=== PATIENT | female | born 1970 | race Caucasian/White ===

== ENCOUNTER 2018-05-22 19:17 | Emergency (ER) | payer OTHER, MEDICAID, SELFPAY ==
[2018-05-22 19:43] VITALS: BP 148/91; PULSE 81; RESP 20; TEMP 36.4; O2SAT 97; BMI 26.9
--- NOTE | 2018-05-22 20:08 | DI.RAD.S_ITS ---
PROCEDURE: XR CHEST 2V INDICATIONS: productive cough, wheezing TECHNIQUE: 2 views of the chest were acquired. COMPARISON: None. FINDINGS: Surgical changes and devices: None. Lungs and pleura: No pleural effusions or pneumothorax. Lungs are clear. Mediastinum: Mediastinal contours are normal. Heart size is normal. Bones and chest wall: No suspicious bony abnormalities. Soft tissues appear unremarkable. IMPRESSION: No acute process. Dictated by: Zion Flores M.D. on 05/22/2018 at 21:06 Approved by: Zion Flores M.D. on 05/22/2018 at 21:07
[2018-05-22 20:29] VITALS: PULSE 71; RESP 18; O2SAT 99
[2018-05-22] MEDS: ALBUTEROL/IPRATROPIUM 3 ML AMPUL INH (20:29)
--- NOTE | 2018-05-22 20:31 | ED.URI ---
HPI - URI/Sore Throat <SHUKRI Morales - Last Filed: 05/22/18 21:49> General Chief Complaint: Upper Respiratory Symptoms Stated Complaint: cough,runny nose,sob chest pain for about a week Time Seen by Provider: 05/22/18 20:00 Source: patient Mode of arrival: ambulatory Limitations: no limitations History of Present Illness HPI Narrative: Patient presents with chief complaint of productive cough, shortness of breath, congestion for 1 week. She denies any objective history of asthma, COPD, pneumonia with states she has used an inhaler in the past. She developed abdominal pain in the center of her abdomen yesterday. She states her abdominal pain is worse with coughing or pressure. She denies any chest pain. She denies any objective fevers but complains of muscle aches and chills. She denies any urinary symptoms including urgency, frequency or dysuria. She denies any nausea vomiting or diarrhea. She complains of sore throat, worse when coughing. Related Data Home Medications Medication Instructions Recorded Confirmed citalopram 1 tab PO DAILY 05/22/18 05/22/18 fluticasone 1 spray INTRANASAL DAILY 05/22/18 05/22/18 hydrochlorothiazide 1 tab PO DAILY 05/22/18 05/22/18 prazosin 1 - 2 cap PO QPM 05/22/18 05/22/18 Allergies Allergy/AdvReac Type Severity Reaction Status Date / Time No Known Drug Allergies Allergy Verified 05/22/18 19:47 Review of Systems [facility] - Last Filed: 05/22/18 21:49> Review of Systems GENERAL: See HPI HEENT: See HPI RESPIRATORY: See HPI. CARDIOVASCULAR: Denies chest pain, palpitations, orthopnea, edema, GASTROINTESTINAL: Denies nausea, vomiting, abdominal pain, diarrhea, constipation, melena. : Denies dysuria, frequency, incontinence, hematuria, urinary retention. MUSCULOSKELETAL: denies weakness, joint pain, or bony pain SKIN: Denies rash, skin lesions, or other NEUROLOGIC: Denies weakness, headache, numbness, change in speech, confusion, seizures, incoordination. PSYCHIATRIC: No concerning psychosocial issues. 12 point review of systems is negative except for those stated above Exam <SHKURI Morales - Last Filed: 05/22/18 21:49> Narrative Exam Narrative: GENERAL: This is a well-nourished, well-developed patient, wearing mask HEAD: Atraumatic. Normocephalic. No temporal or scalp tenderness. EYES: Pupils equal round and reactive. Extraocular motions intact. No scleral icterus. No injection or drainage. ENT: Nose without bleeding, purulent drainage or septal hematoma. Throat without erythema, tonsillar hypertrophy or exudate. Uvula midline. Airway patent. TMs pearly bird bilaterally. NECK: Trachea midline. No JVD or lymphadenopathy. Supple, nontender, no meningeal signs. CARDIOVASCULAR: Regular rate and rhythm without murmurs, gallops, or rubs. RESPIRATORY: Productive cough during exam. Scattered crackles right lower lobe. Diffuse expiratory wheezes throughout. No increased respiratory effort no accessory muscle use. GASTROINTESTINAL: Abdomen soft, nondistended. No hepato-splenomegaly, or palpable masses. No guarding. Diffuse tenderness to palpation. No pulsatile mass. Active bowel sounds all 4 quadrants. EXTREMITIES: No clubbing, cyanosis, or edema. No joint tenderness, effusion, or edema noted. BACK: Nontender without deformity or crepitance. No flank tenderness. NEURO: AOx3. SKIN: No rash or erythema. Initial Vital Signs Initial Vital Signs: Vital Signs Temperature 97.6 F 05/22/18 19:43 Pulse Rate 81 05/22/18 19:43 Respiratory Rate 20 05/22/18 19:43 Blood Pressure 148/91 H 05/22/18 19:43 Pulse Oximetry 97 05/22/18 19:43 <Fifi Farias DO - Last Filed: 05/24/18 01:49> Initial Vital Signs Initial Vital Signs: Vital Signs Temperature 97.6 F 05/22/18 19:43 Pulse Rate 81 05/22/18 19:43 Respiratory Rate 20 05/22/18 19:43 Blood Pressure 148/91 H 05/22/18 19:43 Pulse Oximetry 97 05/22/18 19:43 Course <ANAI Morales - Last Filed: 05/22/18 21:49> Orders Ordered: Discontinued Medications Albuterol (Ventolin Hfa Prepack) 1 box MISC SEEINSTR ONE Stop: 05/22/18 21:40 Last Admin: 05/22/18 21:44 Dose: 1 box Albuterol/Ipratropium (Duoneb) 3 ml INH NOW ONE Stop: 05/22/18 20:28 Last Admin: 05/22/18 20:29 Dose: 3 ml Potassium Chloride (Klor-Con M20) 40 meq PO NOW ONE Stop: 05/22/18 21:40 Last Admin: 05/22/18 21:46 Dose: 40 meq Reevaluation(s) Reevaluation #1: Discussed negative chest x-ray negative flu. Patient is on her stretcher, no apparent shortness of breath watching her cell phone. Time: 21:00 Reevaluation #2: Discussed normal lab findings. Encouraged ffis-osc-gvfqphg comfort medications as needed and able. Discussed prescription for a Ventolin as well as follow up with primary care provider for Time: 21:40 Vital Signs - 8 hr 05/22/18 19:43 05/22/18 20:29 Temperature 97.6 F Pulse Rate 81 71 Respiratory Rate 20 18 Blood Pressure 148/91 H Pulse Oximetry 97 99 <Fifi Farias DO - Last Filed: 05/24/18 01:49> Orders Ordered: Discontinued Medications Albuterol (Ventolin Hfa Prepack) 1 box MISC SEEINSTR ONE Stop: 05/22/18 21:40 Last Admin: 05/22/18 21:44 Dose: 1 box Albuterol/Ipratropium (Duoneb) 3 ml INH NOW ONE Stop: 05/22/18 20:28 Last Admin: 05/22/18 20:29 Dose: 3 ml Potassium Chloride (Klor-Con M20) 40 meq PO NOW ONE Stop: 05/22/18 21:40 Last Admin: 05/22/18 21:46 Dose: 40 meq Vital Signs - 8 hr 05/22/18 19:43 05/22/18 20:29 Temperature 97.6 F Pulse Rate 81 71 Respiratory Rate 20 18 Blood Pressure 148/91 H Pulse Oximetry 97 99 MDM - URI/Sore Throat <ANAI Morales - Last Filed: 05/22/18 21:49> Lab Data Attestation: I reviewed the patient's lab results. Result diagrams: 05/22/18 20:55 05/22/18 20:55 Lab Results 10/14/18 10/14/18 10/14/18 Range/Units 20:15 20:55 20:55 WBC 9.7 (4.5-11.0) X10^3/uL RBC 4.58 (4.0-5.2) X10^6/uL Hgb 12.7 (12.0-16.0) g/dL Hct 38.7 (36-46) % MCV 84.4 (80-100) fL MCH 27.6 (26-34) PG MCHC 32.8 (30-36) % RDW 14.1 (11.6-14.8) % Plt Count 173 (150-400) X10^3/uL Neut % (Auto) 51.7 (50-75) % Lymph % (Auto) 39.6 (25-40) % [place] % (Auto) 7.0 (3-14) % Eos % (Auto) 1.4 L (2-4) % Baso % (Auto) 0.3 (0-2) % Neut # (Auto) 5000 (3882-3539) /uL Sodium 142 (137-145) mmol/L Potassium 3.3 L (3.4-5.1) mmol/L Chloride 99 (98-107) mmol/L Carbon Dioxide 32 (22-32) mmol/L BUN 8 (7-17) mg/dL Creatinine 0.60 (0.52-1.04) mg/dL Estimated GFR > 60.0 (>60) mL/min BUN/Creatinine Ratio 13.3 (6-22) Glucose 115 H (70-100) mg/dL Calcium 9.0 (8.4-10.2) mg/dL Total Bilirubin 0.2 (0.2-1.3) mg/dL AST 32 (14-36) IU/L ALT 40 (9-52) IU/L Alkaline Phosphatase 63 (38-126) U/L Total Protein 7.5 (6.3-8.2) g/dL Albumin 4.4 (3.5-5.0) g/dL Globulin 3.1 (1.7-4.1) g/dL Albumin/Globulin Ratio 1.4 (1.0-2.8) Amylase 87 (30-110) U/L Lipase 298 (23-300) U/L Influenza A & B (PCR) Negative (Negative) 40 mEq PCO given. Imaging Data Chest x-ray: Radiologist's impression: [address] [address] XRay Report Signed Patient: Angela Arndt EMR#: [id number] : 1970Acct:[id number] Age/Sex: 47 / FDate of Service: 05/22/18 Loc: ED Accession Number: [id number] Procedure: XR chest 2V Ordering Provider: Azzia Servin PROCEDURE: XR CHEST 2V INDICATIONS: productive cough, wheezing TECHNIQUE: 2 views of the chest were acquired. COMPARISON: None. FINDINGS: Surgical changes and devices: None. Lungs and pleura: No pleural effusions or pneumothorax. Lungs are clear. Mediastinum: Mediastinal contours are normal. Heart size is normal. Bones and chest wall: No suspicious bony abnormalities. Soft tissues appear unremarkable. IMPRESSION: No acute process. Dictated by: Zion Flores M.D. on 05/22/2018 at 21:06 Approved by: Zion Flores M.D. on 05/22/2018 at 21:07 [facility] Narrative Medical decision making narrative: Patient presents with chief complaint of productive cough for 5 days. She had a negative chest x-ray, negative lab work, but slight wheezes on exam. She is given a nebulizer emergency department. I discussed at length follow up with primary care provider if no improvement in the next week. Since patient has not taken any ilbo-auu-evtatza cough remedies, I suggested yqtf-rjs-awltvbn guaifenesin, honey/lemon as able, Mucinex and another comfort medications. She did complain of abdominal pain, but has a benign abdominal exam and normal lab work. She states her breathing was much improved after the nebulizer treatment the emergency department, so I did give her a prepack of Ventolin for home use. I discussed return precautions of shortness of breath, chest pain or acute concerns. Patient no questions or concerns upon discharge. <Fifi Farias, - Last Filed: 05/24/18 01:49> Lab Data Lab Results 05/22/18 05/22/18 05/22/18 Range/Units 20:15 20:55 20:55 WBC 9.7 (4.5-11.0) X10^3/uL RBC 4.58 (4.0-5.2) X10^6/uL Hgb 12.7 (12.0-16.0) g/dL Hct 38.7 (36-46) % MCV 84.4 (80-100) fL MCH 27.6 (26-34) PG MCHC 32.8 (30-36) % RDW 14.1 (11.6-14.8) % Plt Count 173 (150-400) X10^3/uL Neut % (Auto) 51.7 (50-75) % Lymph % (Auto) 39.6 (25-40) % [place] % (Auto) 7.0 (3-14) % Eos % (Auto) 1.4 L (2-4) % Baso % (Auto) 0.3 (0-2) % Neut # (Auto) 5000 (3165-9479) /uL Sodium 142 (137-145) mmol/L Potassium 3.3 L (3.4-5.1) mmol/L Chloride 99 (98-107) mmol/L Carbon Dioxide 32 (22-32) mmol/L BUN 8 (7-17) mg/dL Creatinine 0.60 (0.52-1.04) mg/dL Estimated GFR > 60.0 (>60) mL/min BUN/Creatinine Ratio 13.3 (6-22) Glucose 115 H (70-100) mg/dL Calcium 9.0 (8.4-10.2) mg/dL Total Bilirubin 0.2 (0.2-1.3) mg/dL AST 32 (14-36) IU/L ALT 40 (9-52) IU/L Alkaline Phosphatase 63 (38-126) U/L Total Protein 7.5 (6.3-8.2) g/dL Albumin 4.4 (3.5-5.0) g/dL Globulin 3.1 (1.7-4.1) g/dL Albumin/Globulin Ratio 1.4 (1.0-2.8) Amylase 87 (30-110) U/L Lipase 298 (23-300) U/L Influenza A & B (PCR) Negative (Negative) Discharge Plan Departure Patient Disposition: Home Clinical Impression: Upper respiratory infection, Bilateral wheezing, Abdominal pain, Cough Discharge Date/Time: 05/22/18 22:07 Interventions: ED Discharge Assessment Last Done: 10/14/18 22:06 Instructions: Cough (Alternative Therapy), DI for Cough -- Adult, DI for Abdominal Pain-Adult, DI for Shortness of Breath Activity Restrictions/Additional Instructions: Your x-ray came back negative for pneumonia. You flu test came back negative. Your lab work came back normal. Given that your breathing improved upon the nebulizer treatment I have given you an inhaler to take home. Please use honey/lemon, fbfb-hfd-xmdvbvo medications such as guaifenesin her Mucinex for your cough. Follow up with primary care for worsening or no improvement or come back to the emergency department for any acute concerns. Prescriptions: No Action prazosin 1 mg capsule 1 - 2 cap PO QPM RF: 0 citalopram 20 mg tablet 1 tab PO DAILY RF: 0 hydrochlorothiazide 12.5 mg capsule 1 tab PO DAILY RF: 0 fluticasone 50 mcg/actuation spray,suspension 1 spray Intranasal DAILY RF: 0 <Fifi Farias DO - Last Filed: 05/24/18 01:49> Cosign ED Attending Antony Attestation: I was immediately available in the department for consultation. Documentation has been reviewed. I agree with assessment and plan.
--- NOTE | 2018-05-22 20:36 | ED_ITS ---
HPI - URI/Sore Throat <SHUKRI Morales - Last Filed: 05/22/18 21:49> General Chief Complaint: Upper Respiratory Symptoms Stated Complaint: cough,runny nose,sob chest pain for about a week Time Seen by Provider: 05/22/18 20:00 Source: patient Mode of arrival: ambulatory Limitations: no limitations History of Present Illness HPI Narrative: Patient presents with chief complaint of productive cough, shortness of breath, congestion for 1 week. She denies any objective history of asthma, COPD, pneumonia with states she has used an inhaler in the past. She developed abdominal pain in the center of her abdomen yesterday. She states her abdominal pain is worse with coughing or pressure. She denies any chest pain. She denies any objective fevers but complains of muscle aches and chills. She denies any urinary symptoms including urgency, frequency or dysuria. She denies any nausea vomiting or diarrhea. She complains of sore throat, worse when coughing. Related Data Home Medications Medication Instructions Recorded Confirmed citalopram 1 tab PO DAILY 05/22/18 05/22/18 fluticasone 1 spray INTRANASAL DAILY 05/22/18 05/22/18 hydrochlorothiazide 1 tab PO DAILY 05/22/18 05/22/18 prazosin 1 - 2 cap PO QPM 05/22/18 05/22/18 Allergies Allergy/AdvReac Type Severity Reaction Status Date / Time No Known Drug Allergies Allergy Verified 05/22/18 19:47 Review of Systems <[facility] - Last Filed: 05/22/18 21:49> Review of Systems GENERAL: See HPI HEENT: See HPI RESPIRATORY: See HPI. CARDIOVASCULAR: Denies chest pain, palpitations, orthopnea, edema, GASTROINTESTINAL: Denies nausea, vomiting, abdominal pain, diarrhea, constipation, melena. : Denies dysuria, frequency, incontinence, hematuria, urinary retention. MUSCULOSKELETAL: denies weakness, joint pain, or bony pain SKIN: Denies rash, skin lesions, or other NEUROLOGIC: Denies weakness, headache, numbness, change in speech, confusion, seizures, incoordination. PSYCHIATRIC: No concerning psychosocial issues. 12 point review of systems is negative except for those stated above Exam <HSUKRI Morales - Last Filed: 05/22/18 21:49> Narrative Exam Narrative: GENERAL: This is a well-nourished, well-developed patient, wearing mask HEAD: Atraumatic. Normocephalic. No temporal or scalp tenderness. EYES: Pupils equal round and reactive. Extraocular motions intact. No scleral icterus. No injection or drainage. ENT: Nose without bleeding, purulent drainage or septal hematoma. Throat without erythema, tonsillar hypertrophy or exudate. Uvula midline. Airway patent. TMs pearly bird bilaterally. NECK: Trachea midline. No JVD or lymphadenopathy. Supple, nontender, no meningeal signs. CARDIOVASCULAR: Regular rate and rhythm without murmurs, gallops, or rubs. RESPIRATORY: Productive cough during exam. Scattered crackles right lower lobe. Diffuse expiratory wheezes throughout. No increased respiratory effort no accessory muscle use. GASTROINTESTINAL: Abdomen soft, nondistended. No hepato-splenomegaly, or palpable masses. No guarding. Diffuse tenderness to palpation. No pulsatile mass. Active bowel sounds all 4 quadrants. EXTREMITIES: No clubbing, cyanosis, or edema. No joint tenderness, effusion, or edema noted. BACK: Nontender without deformity or crepitance. No flank tenderness. NEURO: AOx3. SKIN: No rash or erythema. Initial Vital Signs Initial Vital Signs: Vital Signs Temperature 97.6 F 05/22/18 19:43 Pulse Rate 81 05/22/18 19:43 Respiratory Rate 20 05/22/18 19:43 Blood Pressure 148/91 H 05/22/18 19:43 Pulse Oximetry 97 05/22/18 19:43 <Fifi Farias DO - Last Filed: 05/24/18 01:49> Initial Vital Signs Initial Vital Signs: Vital Signs Temperature 97.6 F 05/22/18 19:43 Pulse Rate 81 05/22/18 19:43 Respiratory Rate 20 05/22/18 19:43 Blood Pressure 148/91 H 05/22/18 19:43 Pulse Oximetry 97 05/22/18 19:43 Course <ANAI Morales - Last Filed: 05/22/18 21:49> Orders Ordered: Discontinued Medications Albuterol (Ventolin Hfa Prepack) 1 box MISC SEEINSTR ONE Stop: 05/22/18 21:40 Last Admin: 05/22/18 21:44 Dose: 1 box Albuterol/Ipratropium (Duoneb) 3 ml INH NOW ONE Stop: 05/22/18 20:28 Last Admin: 05/22/18 20:29 Dose: 3 ml Potassium Chloride (Klor-Con M20) 40 meq PO NOW ONE Stop: 05/22/18 21:40 Last Admin: 05/22/18 21:46 Dose: 40 meq Reevaluation(s) Reevaluation #1: Discussed negative chest x-ray negative flu. Patient is on her stretcher, no apparent shortness of breath watching her cell phone. Time: 21:00 Reevaluation #2: Discussed normal lab findings. Encouraged pral-imh-pvkqcst comfort medications as needed and able. Discussed prescription for a Ventolin as well as follow up with primary care provider for Time: 21:40 Vital Signs - 8 hr 05/22/18 19:43 05/22/18 20:29 Temperature 97.6 F Pulse Rate 81 71 Respiratory Rate 20 18 Blood Pressure 148/91 H Pulse Oximetry 97 99 <Fifi Farias DO - Last Filed: 05/24/18 01:49> Orders Ordered: Discontinued Medications Albuterol (Ventolin Hfa Prepack) 1 box MISC SEEINSTR ONE Stop: 05/22/18 21:40 Last Admin: 05/22/18 21:44 Dose: 1 box Albuterol/Ipratropium (Duoneb) 3 ml INH NOW ONE Stop: 05/22/18 20:28 Last Admin: 05/22/18 20:29 Dose: 3 ml Potassium Chloride (Klor-Con M20) 40 meq PO NOW ONE Stop: 05/22/18 21:40 Last Admin: 05/22/18 21:46 Dose: 40 meq Vital Signs - 8 hr 05/22/18 19:43 05/22/18 20:29 Temperature 97.6 F Pulse Rate 81 71 Respiratory Rate 20 18 Blood Pressure 148/91 H Pulse Oximetry 97 99 MDM - URI/Sore Throat <ANAI Morales - Last Filed: 05/22/18 21:49> Lab Data Attestation: I reviewed the patient's lab results. Result diagrams: 05/22/18 20:55 05/22/18 20:55 Lab Results 10/14/18 10/14/18 10/14/18 Range/Units 20:15 20:55 20:55 WBC 9.7 (4.5-11.0) X10^3/uL RBC 4.58 (4.0-5.2) X10^6/uL Hgb 12.7 (12.0-16.0) g/dL Hct 38.7 (36-46) % MCV 84.4 (80-100) fL MCH 27.6 (26-34) PG MCHC 32.8 (30-36) % RDW 14.1 (11.6-14.8) % Plt Count 173 (150-400) X10^3/uL Neut % (Auto) 51.7 (50-75) % Lymph % (Auto) 39.6 (25-40) % [place] % (Auto) 7.0 (3-14) % Eos % (Auto) 1.4 L (2-4) % Baso % (Auto) 0.3 (0-2) % Neut # (Auto) 5000 (9092-1054) /uL Sodium 142 (137-145) mmol/L Potassium 3.3 L (3.4-5.1) mmol/L Chloride 99 (98-107) mmol/L Carbon Dioxide 32 (22-32) mmol/L BUN 8 (7-17) mg/dL Creatinine 0.60 (0.52-1.04) mg/dL Estimated GFR > 60.0 (>60) mL/min BUN/Creatinine Ratio 13.3 (6-22) Glucose 115 H (70-100) mg/dL Calcium 9.0 (8.4-10.2) mg/dL Total Bilirubin 0.2 (0.2-1.3) mg/dL AST 32 (14-36) IU/L ALT 40 (9-52) IU/L Alkaline Phosphatase 63 (38-126) U/L Total Protein 7.5 (6.3-8.2) g/dL Albumin 4.4 (3.5-5.0) g/dL Globulin 3.1 (1.7-4.1) g/dL Albumin/Globulin Ratio 1.4 (1.0-2.8) Amylase 87 (30-110) U/L Lipase 298 (23-300) U/L Influenza A & B (PCR) Negative (Negative) 40 mEq PCO given. Imaging Data Chest x-ray: Radiologist's impression: [address] [address] XRay Report Signed Patient: Angela Arndt EMR#: [id number] : 1970Acct:[id number] Age/Sex: 47 / FDate of Service: 05/22/18 Loc: ED Accession Number: [id number] Procedure: XR chest 2V Ordering Provider: Aziza Servin PROCEDURE: XR CHEST 2V INDICATIONS: productive cough, wheezing TECHNIQUE: 2 views of the chest were acquired. COMPARISON: None. FINDINGS: Surgical changes and devices: None. Lungs and pleura: No pleural effusions or pneumothorax. Lungs are clear. Mediastinum: Mediastinal contours are normal. Heart size is normal. Bones and chest wall: No suspicious bony abnormalities. Soft tissues appear unremarkable. IMPRESSION: No acute process. Dictated by: Zion Flores M.D. on 05/22/2018 at 21:06 Approved by: Zion Flores M.D. on 05/22/2018 at 21:07 [facility] Narrative Medical decision making narrative: Patient presents with chief complaint of productive cough for 5 days. She had a negative chest x-ray, negative lab work , but slight wheezes on exam. She is given a nebulizer emergency department. I discussed at length follow up with primary care provider if no improvement in the next week. Since patient has not taken any bbga-wqj-pxuwuwz cough remedies , I suggested mkij-cvu-pnlspyw guaifenesin, honey/lemon as able, Mucinex and another comfort medications. She did complain of abdominal pain, but has a benign abdominal exam and normal lab work. She states her breathing was much improved after the nebulizer treatment the emergency department, so I did give her a prepack of Ventolin for home use. I discussed return precautions of shortness of breath, chest pain or acute concerns. Patient no questions or concerns upon discharge. <Fifi Farias, - Last Filed: 05/24/18 01:49> Lab Data Lab Results 05/22/18 05/22/18 05/22/18 Range/Units 20:15 20:55 20:55 WBC 9.7 (4.5-11.0) X10^3/uL RBC 4.58 (4.0-5.2) X10^6/uL Hgb 12.7 (12.0-16.0) g/dL Hct 38.7 (36-46) % MCV 84.4 (80-100) fL MCH 27.6 (26-34) PG MCHC 32.8 (30-36) % RDW 14.1 (11.6-14.8) % Plt Count 173 (150-400) X10^3/uL Neut % (Auto) 51.7 (50-75) % Lymph % (Auto) 39.6 (25-40) % [place] % (Auto) 7.0 (3-14) % Eos % (Auto) 1.4 L (2-4) % Baso % (Auto) 0.3 (0-2) % Neut # (Auto) 5000 (9533-2504) /uL Sodium 142 (137-145) mmol/L Potassium 3.3 L (3.4-5.1) mmol/L Chloride 99 (98-107) mmol/L Carbon Dioxide 32 (22-32) mmol/L BUN 8 (7-17) mg/dL Creatinine 0.60 (0.52-1.04) mg/dL Estimated GFR > 60.0 (>60) mL/min BUN/Creatinine Ratio 13.3 (6-22) Glucose 115 H (70-100) mg/dL Calcium 9.0 (8.4-10.2) mg/dL Total Bilirubin 0.2 (0.2-1.3) mg/dL AST 32 (14-36) IU/L ALT 40 (9-52) IU/L Alkaline Phosphatase 63 (38-126) U/L Total Protein 7.5 (6.3-8.2) g/dL Albumin 4.4 (3.5-5.0) g/dL Globulin 3.1 (1.7-4.1) g/dL Albumin/Globulin Ratio 1.4 (1.0-2.8) Amylase 87 (30-110) U/L Lipase 298 (23-300) U/L Influenza A & B (PCR) Negative (Negative) Discharge Plan Departure Patient Disposition: Home Clinical Impression: Upper respiratory infection, Bilateral wheezing, Abdominal pain, Cough Discharge Date/Time: 05/22/18 22:07 Interventions: ED Discharge Assessment Last Done: 10/14/18 22:06 Instructions: Cough (Alternative Therapy), DI for Cough -- Adult, DI for Abdominal Pain-Adult, DI for Shortness of Breath Activity Restrictions/Additional Instructions: Your x-ray came back negative for pneumonia. You flu test came back negative. Your lab work came back normal. Given that your breathing improved upon the nebulizer treatment I have given you an inhaler to take home. Please use honey/ lemon, klog-zpy-cocnpal medications such as guaifenesin her Mucinex for your cough. Follow up with primary care for worsening or no improvement or come back to the emergency department for any acute concerns. Prescriptions: No Action prazosin 1 mg capsule 1 - 2 cap PO QPM RF: 0 citalopram 20 mg tablet 1 tab PO DAILY RF: 0 hydrochlorothiazide 12.5 mg capsule 1 tab PO DAILY RF: 0 fluticasone 50 mcg/actuation spray,suspension 1 spray Intranasal DAILY RF: 0 <Fifi Farias DO - Last Filed: 05/24/18 01:49> Cosign ED Attending Antony Attestation: I was immediately available in the department for consultation. Documentation has been reviewed. I agree with assessment and plan.
[2018-05-22 20:41] LABS: Influenza A and B by PCR Rapid Negative (Negative)
[2018-05-22 21:08] LABS: Add Manual Diff / Slide Review NO; Basophils Percent Auto 0.3 % (0-2); Eosinophils Percent Auto 1.4 % (2-4); Hematocrit 38.7 % (36-46); Hemoglobin 12.7 g/dL (12.0-16.0); Lymphocytes Percent Auto 39.6 % (25-40); Mean Corpuscular HGB Conc 32.8 % (30-36); Mean Corpuscular Hemoglobin 27.6 PG (26-34); Mean Corpuscular Volume 84.4 fL (80-100); Neutrophils Absolute Auto 5000 /uL (3000-5900); Neutrophils Percent Auto 51.7 % (50-75); Platelet Count 173 X10^3/uL (150-400); Red Blood Cell Count 4.58 X10^6/uL (4.0-5.2); Red Cell Distribution Width 14.1 % (11.6-14.8); White Blood Cell Count 9.7 X10^3/uL (4.5-11.0)
[2018-05-22 21:14] LABS: Alanine Aminotransferase 40 IU/L (9-52); Albumin 4.4 g/dL (3.5-5.0); Albumin Globulin Ratio 1.4 (1.0-2.8); Alkaline Phosphatase 63 U/L (38-126); Amylase 87 U/L (30-110); Aspartate Aminotransferase 32 IU/L (14-36); BUN Creatinine Ratio 13.3 (6-22); Bilirubin Total 0.2 mg/dL (0.2-1.3); Blood Urea Nitrogen 8 mg/dL (7-17); Carbon Dioxide 32 mmol/L (22-32); Chloride 99 mmol/L (98-107); Estimated Glomerular Filt Rate > 60.0 mL/min (>60); Globulin 3.1 g/dL (1.7-4.1); Glucose 115 mg/dL (70-100); HEMOLYSIS < 15 (0-50); Lipase 298 U/L (23-300); Potassium 3.3 mmol/L (3.4-5.1); Sodium 142 mmol/L (137-145); Total Protein 7.5 g/dL (6.3-8.2)
[2018-05-22] MEDS: ALBUTEROL HFA PREPACK 1 BOX MISC (21:44)
[2018-05-22] MEDS: POTASSIUM CHLORIDE 20 MEQ TAB 40 MEQ PO (21:46)
[2018-05-22 22:06] VITALS: BP 144/94; PULSE 83; RESP 18; O2SAT 99
== END 2018-05-22 22:07 | disposition home or self-care (01) ==
PROVIDERS: Emergency Provider Nurse Practitioner Family
DX: J06.9 Acute upper respiratory infection, unspecified (principal); R06.2 Wheezing; R10.9 Unspecified abdominal pain; R05 Cough
CPT/HCPCS: 36415; 71046; 80053; 82150; 83690; 85025; 87400; 94640; 99282; 99284